=== PATIENT | male | born 1990 | race Caucasian/White ===

== ENCOUNTER 2019-03-23 23:00 | Emergency (ER) | payer OTHER ==
[~2019-03-23] VITALS: Ht 175.3 cm; Wt 68.0 kg
[~2019-03-23 23:00] MED LIST: BUPR1TAB PO
[2019-03-23 23:02] VITALS: BP 146/80
--- NOTE | 2019-03-23 23:05 | NUR ---
TO LOBBY A/W BED AMBULATORY
--- NOTE | 2019-03-23 23:12 | NUR ---
EKG PERFORMED IN TRIAGE ROOM
--- NOTE | 2019-03-23 23:29 | NUR ---
PT AMBULATED TO ER BED 06
--- NOTE | 2019-03-23 23:39 | NUR ---
Dr. Perales examining patient.
--- NOTE | 2019-03-23 23:47 | NUR ---
28 YEAR OLD MALE COMPLAINS OF CHEST PAIN 4/10 THAT IS NONRADIATING AND DULL. PATIENT STATES THAT CHEST PAIN ISNT TOO BAD ANYMORE AND THAT EARLIER HE FELT HIS HEART BEATING REALLY FAST WITH PAIN X 1 HOUR AGO. PATIENT DENIES SHORTNESS OF BREATHE. HR 95, 146/80, 99%, 18 RR.PATIENT ALERT AND ORIENTED, BREATHING EVEN AND UNLABORED, SKIN WARM AND DRY. BED IN LOWEST POSITION, LOCKED, BED RAIL UPX1. PMH - HEROIN X 5 YEARS PREVIOUSLY MEDICATIONS - METHADONE ALLERGIES - NKA
[2019-03-24 00:38] VITALS: BP 127/65
--- NOTE | 2019-03-24 00:38 | NUR ---
Patient discharged with v/s stable. Written and verbal after care instructions given and explained. Patient alert, oriented and verbalized understanding of instructions. Ambulatory with steady gait. All questions addressed prior to discharge. ID band removed. Patient advised to follow up with PMD. Rx of BENADRYL given. Patient educated on indication of medication including possible reaction and side effects. Opportunity to ask questions provided and answered.
== END 2019-03-24 00:38 | disposition home or self-care (01) ==
LOC: MED 23:00
DX: R00.2 Palpitations (principal); Z79.899 Other long term (current) drug therapy; F11.21 Opioid dependence, in remission
CPT/HCPCS: 71045; 93005; 99283; Q0092